=== PATIENT | male | born 2005 | race American Indian/Alaskan Native ===

== ENCOUNTER 2024-02-21 10:26 | Emergency (ER) | payer MEDICAID, SELFPAY ==
[2024-02-21 10:46] VITALS: BP 136/83; PULSE 87; RESP 18; TEMP 36.6; O2SAT 96
[2024-02-21 11:03] VITALS: BMI 41.0
--- NOTE | 2024-02-21 11:26 | XR_ITS ---
Examination: CT brain head without contrast. 2-D sagittal coronal reconstructions Date and time of exam:February 21, 2024 1211 hrs. Indications: Seizure today with fall and injury to the head, head pain neck pain CTDI: vol (mGy):59.6 DLP: (mGycm):1262 Technique: Multiple CT axial sections of the brain have been obtained, 5 mm slice thickness. Contrast has not been administered. 2-D sagittal, coronal reconstructions have been obtained Low dose protocols were performed. One or more of the following dose reduction techniques were used; automated exposure control, adjustment of the mA and/or KV according to patient size, use of iterative reconstruction technique. Findings: No significant ventricular enlargement. Intra-axial or extra-axial hemorrhage density is not seen. No mass effect or midline shift Basal cisterns are not remarkable. Fourth ventricle is midline. Cranial vault intact. Impression: Negative for acute hemorrhage, mass effect or midline shift
--- NOTE | 2024-02-21 11:26 | EDNOTE_ITS ---
ED Seizures RME/HPI General Chief Complaint: Seizure Stated Complaint: SEIZURE IN SHOWER, NECK/BACK PAIN Time Seen by Provider: 02/21/24 11:06 Arrival date/time: 02/21/24 10:26 This is a 18-year-old male that comes in with complaints of a seizure that happened prior to arrival. Per patient mother she found him in the shower. Patient has an existing seizure disorder and recently has had a lot better control of his seizures. Per mother last seizure was about 5 months ago. Patient currently on Keppra and Vimpat. Patient has a small abrasion to his left side of his neck. He also chipped his front tooth slightly and has a small superficial laceration to his inner upper lip. Patient has no other complaints. Related Data Home Medications ?Medication ?Instructions ?Recorded ?Confirmed cholecalciferol (vitamin D3) 50 50 mcg QDAY 06/02/23 06/02/23 mcg (2,000 unit) capsule Previous Rx's ?Medication ?Instructions ?Recorded lacosamide 100 mg tablet 100 mg PO BID 30 days #60 tabs 06/05/23 levetiracetam 750 mg tablet 1,500 mg (2 x 750 mg) PO BID 30 06/05/23 days #120 tabs topiramate 200 mg tablet 200 mg PO BID 30 days #60 tabs 06/05/23 ibuprofen 800 mg tablet 800 mg PO Q6H PRN pain #14 tabs 02/21/24 Allergies Allergy/AdvReac Type Severity Reaction Status Date / Time divalproex sodium Allergy Severe Rash Verified 06/04/23 14:28 pistachio nut Allergy Severe Difficulty Verified 06/04/23 14:25 Breathing Review of Systems Review of Systems Systems Reviewed: All systems reviewed, normal except as documented Past Medical History Family History OTHER FAMILY HX: No history of seizure disorder in the family Surgical History OTHER SURGICAL HX: None Social History SOCIAL: No evidence of smoking, occasionally social drinker, no use of illicit drug Past Medical History Comments PMH COMMENT: History of seizure disorder for last 4 years ED Exam General General appearance: Present alert and in no apparent distress Head Head exam: Present atraumatic Eye Eye exam: Present normal appearance, PERRL and EOMI ENT ENT exam: Present normal exam, normal oropharynx and mucous membranes moist (small abrasion to left side of neck ) Neck Neck exam: Present normal inspection, full ROM and trachea midline Chest Chest inspection: Present normal inspection and symmetric chest wall rise Respiratory Respiratory exam: Present normal lung sounds bilaterally Cardiovascular Cardiovascular exam: Present regular rate, normal rhythm and normal heart sounds Abdominal Exam Abdominal exam: Present soft Extremities Exam Extremities exam: Present normal inspection and full ROM Back Exam Back exam: Present normal inspection and full ROM Neurological Exam Neurological exam: Present alert, oriented X3 and CN II-XII intact Psychiatric Psychiatric exam: Present normal affect and normal mood Skin Skin exam: Present warm, dry, intact and normal color Course Quality Measures none Orders Category Date Time Status CT cervical spine wo con Stat Exams 02/21/24 11:[address] head/brain wo con Stat Exams 02/21/24 11:26 Completed Acetaminophen Tab [Tylenol ES Tab] Med 02/21/24 11:26 Discontinued 1,000 mg PO X1 ONE HYDROcodone*/APAP 5/325 [[place] 5/325] Med 02/21/24 13:47 Discontinued 1 tab PO X1 ONE Ibuprofen Tab [Motrin Tab] Med 02/21/24 13:48 Discontinued 800 mg PO X1 ONE Ketorolac Inj [Toradol Inj] Med 02/21/24 13:47 Discontinued 60 mg IM X1 ONE Ondansetron Odt [Zofran Odt] Med 02/21/24 13:47 Discontinued 4 mg PO X1 ONE Vital Signs Vital signs: Vital Signs Temperature 97.8 F 02/21/24 10:46 Pulse Rate 87 02/21/24 10:46 Respiratory Rate 18 02/21/24 10:46 Blood Pressure 136/83 H 02/21/24 10:46 Pulse Oximetry (%) 96 02/21/24 10:46 Oxygen Delivery Method Room Air 02/21/24 10:46 Seizure MDM Narrative MDM Narrative:: cervical spine ct: Findings: Axial sections demonstrate intact base of the skull. C1 exhibit satisfactory relationship to the odontoid. No acute cervical vertebral body fracture seen. Alignment posterior spinous processes satisfactory. Impression: No acute cervical fracture. If severe neck pain persists, consider MRI cervical spine without contrast follow-up CT head: Findings: No significant ventricular enlargement. Intra-axial or extra-axial hemorrhage density is not seen. No mass effect or midline shift Basal cisterns are not remarkable. Fourth ventricle is midline. Cranial vault intact. Impression: Negative for acute hemorrhage, mass effect or midline shift Patient given him tylenol initially. Pt still had pain and was given norco, ibuprofen, and zofran. Per mother pt typically has seizures but this is the longest time he has been without sz. Mother brought pt to ED to make sure he did not hurt himself in shower. Mothetr told to take son to PMD and or neurology fo follow up in 1-2 days. Patient data External records reviewed:: [facility] previous records Clinical information provided by:: patient Social determinants that could affect healthcare access:: none Patient has the following chronic illnesses:: none How is presenting disease/condition affected by chronic disease/condition?: no chronic disease Evaluation data The following diagnostics were reviewed and interpreted by me:: radiology exam(s) Lab and/or radiology exams considered but not ordered:: none Interpretation Summary: see note Medications / Prescriptions Medications or Prescriptions considered but not ordered:: none Medication administrations:: Medication Administration History Discontinued Medications Acetaminophen (Acetaminophen 500 Mg Tablet) 1,000 mg PO X1 ONE Stop: 02/21/24 11:27 Last Admin: 02/21/24 11:45 Dose: 1,000 mg Documented By: CHAPO Hydrocodone Bitart/Acetaminophen (Hydrocodone/Apap 5/325 Tablet) 1 tab PO X1 ONE Stop: 02/21/24 13:48 Last Admin: 02/21/24 14:27 Dose: Not Given Documented By: LF Non-Admin Reason: Patient Asleep Ibuprofen (Ibuprofen Tab 400 Mg Tablet) 800 mg PO X1 ONE Stop: 02/21/24 13:49 Last Admin: 02/21/24 14:27 Dose: Not Given Documented By: LF Non-Admin Reason: Patient Asleep Ketorolac Tromethamine (Ketorolac Inj 60 Mg/2 Ml Vial) 60 mg IM X1 ONE Stop: 02/21/24 13:48 Last Admin: 02/21/24 14:28 Dose: Not Given Documented By: LF Non-Admin Reason: Cancelled by Provider Ondansetron HCl (Ondansetron Odt 4 Mg Tabrap) 4 mg PO X1 ONE; Protocol Stop: 02/21/24 13:48 Last Admin: 02/21/24 14:27 Dose: Not Given Documented By: LF Non-Admin Reason: Patient Asleep see mar Consultations Consultation(s) initiated? (list below): No Diagnosis Seizure Differential Diagnosis: epileptic seizure and other (neck contusion, cervical fracture ) Most likely diagnosis given after review of the tests above:: none Admission Indicated Admission indicated?: not indicated Admission Request Was there a request for admission?: No Disposition Plan Disposition Plan: Discharge Discharge Attestation Discharge Attestation: The patient and all family members were given an opportunity to ask questions and understood the discharge instructions. Discharge instructions specifically effects, indications for sooner follow up or return to the emergency department, and the expected course of current diagnosis. Patient condition: Stable Discharge Plan Plan Patient Disposition: HOME (Self Care) Patient condition on transfer: Stable Prescriptions/Referrals Prescriptions/Med Rec: New ibuprofen 800 mg tablet 800 mg PO Q6H PRN (Reason: pain) Qty: 14 0RF No Action cholecalciferol (vitamin D3) 50 mcg (2,000 unit) capsule 50 mcg QDAY Patient Comments: TAKE 1 CAPSULE BY MOUTH EVERY DAY levetiracetam 750 mg tablet 1,500 mg PO BID 30 Days Qty: 120 2RF topiramate 200 mg tablet 200 mg PO BID 30 Days Qty: 60 2RF lacosamide 100 mg tablet 100 mg PO BID 30 Days Qty: 60 2RF [facility]bie PA-C [Primary Care Provider] - In 1 week Problem List Clinical Impression: Seizure disorder, Contusion of neck Patient/Caregiver Discharge Instructions Discharge Activity: activity as tolerated Education Materials: Bruises (Contusions), ED Seizure, Recurrent (Adult) Additional Instructions: Follow-up with primary provider in 1 to 2 days. Come back to the emergency room if symptoms change or worsen. Print Language: Congolese Stand Alone Forms: Leti Award Info., Patient Portal Info Letter TONYA/CARLEEN Supervising Physician ISAEL Supervising Physician: juju
--- NOTE | 2024-02-21 11:26 | XR_ITS ---
Examination: CT cervical spine without contrast 2-D sagittal reconstructions 2-D coronal reconstructions 3-D reconstructions. Exam date and time:February 21, 2024 1211 hrs. Indications: Patient fell today with severe neck pain post injury to the neck CTDI:vol (mGy) 10 DLP: (mGycm) 222 Technique: Multiple 2 mm axial sections of the cervical spine have been obtained. The coronal and sagittal reconstructions have been obtained. 3-D reconstructions have been obtained. Low dose protocols were performed. One or more of the following dose reduction techniques were used; automated exposure control, adjustment of the mA and/or KV according to patient size, use of iterative reconstruction technique. Findings: Axial sections demonstrate intact base of the skull. C1 exhibit satisfactory relationship to the odontoid. No acute cervical vertebral body fracture seen. Alignment posterior spinous processes satisfactory. Impression: No acute cervical fracture. If severe neck pain persists, consider MRI cervical spine without contrast follow-up
[2024-02-21] MEDS: ACETAMINOPHEN 500 MG TABLET 1000 MG PO (11:45)
== END 2024-02-21 14:37 | disposition home or self-care (01) ==
PROVIDERS: Emergency Provider Emergency Medicine; PCP Nurse Practitioner Family
DX: G40.909 Epilepsy, unspecified, not intractable, without status epilepticus (principal); S10.93XA Contusion of unspecified part of neck, initial encounter; X58.XXXA Exposure to other specified factors, initial encounter
CPT/HCPCS: 70450; 72125; 99284; A9270

== ENCOUNTER → 2024-07-15 | Outpatient (CLI) | payer MEDICAID, SELFPAY ==
--- NOTE | 2024-07-15 16:30 | XR_ITS ---
Examination: MRI brain without intravenous contrast. Date and time of exam: July 15, 2024 1715 hours COMPARISON: June 04, 2023 INDICATIONS: Seizures beginning at age 12, last seizure one week ago Technique: Multiple axial and sagittal images of the brain obtained. Siemens high-resolution 1.5 Jovanna short bore scanners utilized. Sagittal sections, T1-weighted, TR 500, TE 14, are performed. Axial sections proton-density and T2-weighted have been obtained. Inversion recovery axial images, TR 9, 260, TE 111, TI 2500. Diffusion weighted images, axial sections, TR 4800, TE 128, B value 1000 Axial sections, ADC map, TR 4800, TE 128 Findings: Enlargement of the sella turcica is not present. The optic chiasm and infundibular are not remarkable. Prepontine and interpeduncular cisterns are not enlarged. There is no localized enlargement of the medulla or chio. Fourth ventricle and cerebellar tonsils appear normal in position. No subacute area of hemorrhage density is seen. Mass in the cerebellopontine angle region is not evident. Globes symmetrical. Orbital musculature including medial lateral rectus muscles do not exhibit abnormality. Diffusion-weighted images demonstrate no focus of restricted diffusion. 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 Impression: Negative for acute hemorrhage or mass effect or midline shift No acute infarct No MR findings diagnostic for demyelinating disease No focal intracranial lesion Moderate right and mild left mastoiditis
== END | disposition home or self-care (01) ==
LOC: SMRI 15:52
PROVIDERS: PCP Psychiatry & Neurology Neurology; Referring Provider Psychiatry & Neurology Neurology; Visit Provider Psychiatry & Neurology Neurology
DX: H70.93 Unspecified mastoiditis, bilateral (principal)
CPT/HCPCS: 70551